=== PATIENT | female | born 1940 | race African-American/Black ===

== ENCOUNTER 2022-06-27 16:18 | Emergency (ER) | payer OTHER ==
[~2022-06-27] VITALS: Ht 165.1 cm; Wt 79.5 kg
[~2022-06-27 16:18] MED LIST: CHOLESTEROL PO; CIME300T PO
[2022-06-27] MEDS ORDERED: ACETAMINOPHEN 500 MG TABLET PO ONE (17:15)
[2022-06-27 18:09] VITALS: BP 150/68
== END 2022-06-27 19:02 | disposition home or self-care (01) ==
LOC: EMS 16:24
DX: S13.4XXA Sprain of ligaments of cervical spine, initial encounter (principal); S63.621A Sprain of interphalangeal joint of right thumb, initial encounter; S09.90XA Unspecified injury of head, initial encounter; E78.00 Pure hypercholesterolemia, unspecified; V49.9XXA Car occupant (driver) (passenger) injured in unspecified traffic accident, initial encounter; Y93.89 Activity, other specified; Y92.89 Other specified places as the place of occurrence of the external cause; Y99.8 Other external cause status
CPT/HCPCS: 70450; 72125; 99284